=== PATIENT | female | born 1955 | race Caucasian/White ===

== ENCOUNTER 2022-04-29 08:11 | Inpatient (IN) ==
[2022-04-29] MEDS ORDERED: ONDANSETRON INJ 2 MG/ML 2 ML VIAL IV STA ×2 (08:33→09:58)
[2022-04-29] MEDS ORDERED: NITROGLYCERIN 2% OINTMENT 30GM TUBE EXT STA (08:33)
--- NOTE | 2022-04-29 08:37 | Emergency Department Note ---
Impression & Plan Precordial chest pain, Acute cholecystitis, Vomiting, Gall stone ED Provider Note NAME: RAF VIDALES AGE: 67 SEX: F : 1955 ARRIVES VIA: Walk-In INFORMANT: [Patient] ED PROVIDER(S): [Jovany Mcdonough MD] CHIEF COMPLAINT: Chest pain HISTORY OF PRESENT ILLNESS: The patient is a 67-year-old female who states that at 3 AM, 5-1/2 hours ago, she awoke with what she thought was indigestion. She had pressure in her chest and epigastrium. The pain was an 8/10. The patient states that at 5 AM, she was nauseated and vomited. The pain has persisted. The patient has no known coronary disease. She felt fine last night when she went to bed. She has not had recent exertional dyspnea or chest discomfort. She did try some Tums without any relief. PMHx/PSHx: See Below SOCIAL HISTORY: See Below. PHYSICAL EXAM: GENERAL: Patient is in no acute distress. HEENT: No acute trauma, normocephalic atraumatic, mucous membranes moist, no nasal congestion. NECK: No stridor, no adenopathy, no meningismus, trachea is midline. LUNGS: Clear to auscultation bilaterally, no wheeze, no rhonchi, breath sounds equal. Chest: Nontender chest wall. HEART: Without murmurs gallops or rubs, regular rate and rhythm. ABDOMEN: Soft, nontender, bowel sounds positive, no peritonitis. I cannot really elicit any discomfort with palpation of the upper abdomen. EXTREMITIES: No cyanosis or edema, full range of motion of all the joints without pain or difficulty, no signs for acute trauma. NEUROLOGIC: Oriented x 3, no acute motor or sensory deficits, no focal weakness. SKIN: No rash, no jaundice, no diaphoresis. DIFFERENTIAL DIAGNOSIS: Cardiac ischemia, aortic dissection, pulmonary embolism, pneumothorax, pericarditis, myocarditis, GERD, cholecystitis, pancreatitis, musculoskeletal pain, as well as other pathologies. EMERGENCY DEPARTMENT COURSE/PROCEDURES: Prior/Outside records reviewed: Recent outpatient family doctor's office visit. ECG per my interpretation: Indication was chest pain. The ECG shows a normal sinus rhythm with a rate of 70. There are some subtle ST depressions laterally with some T wave flattening laterally. There is no ST elevation, no PVCs. The QTc is 429. No previous ECGs available for comparison. Continuous Cardiac Monitoring per my interpretation: An order was placed for continuous cardiac monitoring. The monitor shows a rate of 69 with normal sinus rhythm. MEDICAL DECISION MAKING: There is no leukocytosis or concerning anemia. There is a normal platelet count. No coagulopathy. No renal failure or significant electrolyte abnormality. No concerning liver enzyme elevation. No evidence for pancreatitis. COVID test returned negative. Chest film does not show mediastinal widening, pneumonia or pneumothorax per my review. ECG shows a normal sinus rhythm, no obvious ischemia. Cardiac enzyme testing x1 is not consistent with acute cardiac injury. Gallbladder ultrasound shows a gallstone with early acute cholecystitis. The patient received IV Zosyn as antibiotic coverage. He was given IV Zofran, a second dose of IV Zofran was given. She received IV Tylenol for pain, she received IV Pepcid and a GI cocktail. She was given nitroglycerin paste. The patient presents with epigastric and chest discomfort. She had no response to the nitroglycerin, this was discontinued. Work-up does suggest acute cholecystitis as the cause for her discomfort. I spoke with general surgery. The patient was seen by general surgery here in the ED, she has been transported to the operating room. The patient is aware of her findings, case management has been involved. DISPOSITION: The patient's presentation and findings warrant a hospital stay. Past Med/Surg History Medical History Aplasia of uterus Surgical History Hx of tonsillectomy Family History Denies family history of Ovarian cancer Prostate cancer Diabetes Myocardial infarction Breast cancer Colorectal cancer Hypertension Social History Smoking Status: Never smoker Second Hand Exposure: No; Hx Alcohol Use: No Hx Substance Use: No Preferred Language: Nepalese Communication Ability: Effective Visual Impairment: No Limitations Hearing Ability: Normal Development Technician Required: No Beliefs That Will Affect Care: None marital status: Current Living Situation: Spouse 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 have: 2 Other Information That Helps Us Care for You: No Feels Safe at Home: Yes Safety Concerns: Feels Safe At This Time Childhood Exposure to Second-Hand Smoke: No caffeine: Yes (coffee and soda) during the past year weight has: remained stable Dental Care, Regularly: No Physical Activity Frequency: Daily Seatbelt Use: always Sunscreen Use: No Do you think of yourself as: straight/heterosexual Gender Identity: Female Assistive Devices: Contacts Allergies Allergies Allergy/AdvReac Type Severity Reaction Status Date / Time No Known Allergies Allergy Verified 04/08/22 12:43 Home Meds Home Medications Medication Instructions Recorded Confirmed ascorbate calcium (vitamin C) 500 500 mg PO DAILY 04/08/22 04/08/22 mg tablet cholecalciferol (vitamin D3) 250 250 mcg PO DAILY 04/08/22 04/08/22 mcg (10,000 unit) capsule zinc acetate 50 mg (zinc) capsule 50 mg PO DAILY 04/08/22 04/08/22 (Galzin) Results & Data (ED) Vital Signs Vital Signs - 24 hr 04/29/22 08:23 04/29/22 08:26 04/29/22 08:26 Temperature 36.7 C Temperature Source Oral Pulse Rate 70 69 69 Pulse Rate [Apical] Pulse Rate [Right Finger] Pulse Rhythm Regular Pulse Rhythm [Apical] Pulse Rhythm [Right Finger] Pulse Strength [Apical] Pulse Strength [Right Finger] Respiratory Rate 20 20 Respiratory Effort / Characteristics Non-Labored Spontaneous Respiratory Depth Normal Respiratory Pattern Regular Blood Pressure 191/98 H Blood Pressure [Left Arm] Blood Pressure [Right Arm] Blood Pressure Mean 129 Blood Pressure Mean [Left Arm] Blood Pressure Mean [Right Arm] Blood Pressure Position Sitting Blood Pressure Position [Left Arm] Blood Pressure Position [Right Arm] Pulse Oximetry 97 95 Oxygen Delivery Method Room Air Room Air Sepsis Recent Fever Within 48 Hours No Sepsis New/Unexplained Change in Mental Status No Sepsis Action Taken by Nursing No Action Required 04/29/22 09:31 04/29/22 11:14 04/29/22 12:31 Temperature Temperature Source Pulse Rate 78 Pulse Rate [Apical] 66 68 Pulse Rate [Right Finger] Pulse Rhythm Pulse Rhythm [Apical] Regular Regular Pulse Rhythm [Right Finger] Pulse Strength [Apical] Normal Normal Pulse Strength [Right Finger] Respiratory Rate 16 20 Respiratory Effort / Characteristics Non-Labored Non-Labored Spontaneous Respiratory Depth Normal Normal Respiratory Pattern Regular Blood Pressure Blood Pressure [Left Arm] Blood Pressure [Right Arm] 182/93 H 172/93 H Blood Pressure Mean Blood Pressure Mean [Left Arm] Blood Pressure Mean [Right Arm] 122 119 Blood Pressure Position Blood Pressure Position [Left Arm] Blood Pressure Position [Right Arm] Sitting Pulse Oximetry 97 98 Oxygen Delivery Method Room Air Room Air Sepsis Recent Fever Within 48 Hours Sepsis New/Unexplained Change in Mental Status Sepsis Action Taken by Nursing 04/29/22 12:32 04/29/22 12:55 04/29/22 13:02 Temperature 36.7 C Temperature Source Oral Pulse Rate Pulse Rate [Apical] 75 Pulse Rate [Right Finger] 74 Pulse Rhythm Pulse Rhythm [Apical] Regular Pulse Rhythm [Right Finger] Regular Pulse Strength [Apical] Normal Pulse Strength [Right Finger] Normal Respiratory Rate 20 20 Respiratory Effort / Characteristics Non-Labored Spontaneous Respiratory Depth Normal Respiratory Pattern Regular Blood Pressure Blood Pressure [Left Arm] 183/82 H Blood Pressure [Right Arm] 174/110 H 201/100 H Blood Pressure Mean Blood Pressure Mean [Left Arm] 115 Blood Pressure Mean [Right Arm] 131 133 Blood Pressure Position Blood Pressure Position [Left Arm] Lying Blood Pressure Position [Right Arm] Sitting Lying Pulse Oximetry 96 98 Oxygen Delivery Method Room Air Room Air Sepsis Recent Fever Within 48 Hours Sepsis New/Unexplained Change in Mental Status Sepsis Action Taken by Usp Medications Current Medication List: was personally reviewed by me Laboratory Data Attestation: I reviewed the patient's lab results. 04/29/22 08:48 04/29/22 08:48 Lab Results 04/29/22 04/29/22 04/29/22 Range/Units 08:48 08:48 08:48 WBC 7.22 (4.8-10.8) K/ul RBC 4.44 (4.20-5.40) M/uL Hgb 13.2 (12.0-16.0) g/dl Hct 39.1 (37.0-47.0) % MCV 88.1 (80.0-100.0) fL MCH 29.7 (25.0-34.0) pg MCHC 33.8 (32.0-36.0) g/dL RDW Std Deviation 39.2 (36.4-46.3) fL RDW Coeff of Dennys 12.1 (11.5-14.5) % Plt Count 235 (130-400) K/uL MPV 11.5 (9.4-12.4) fL Immature Gran % (Auto) 0.3 % Neut % (Auto) 79.1 % Lymph % (Auto) 12.0 % [place] % (Auto) 6.9 % Eos % (Auto) 0.7 % Baso % (Auto) 1.0 % Neut # (Auto) 5.71 (1.40-6.50) K/uL Lymph # (Auto) 0.87 L (1.2-3.4) K/uL [place] # (Auto) 0.50 (0.11-0.59) K/uL Eos # (Auto) 0.05 (0-0.50) K/uL Baso # (Auto) 0.07 (0-0.2) K/uL Immature Gran # (Auto) 0.02 (0.01-0.20) K/uL PT 10.8 (9.0-12.0) Seconds INR 1.0 (0.9-1.1) APTT 27.0 (21.0-31.0) Seconds PTT Ratio 1.0 Sodium 137 (136-145) mmol/L Potassium 4.3 (3.5-5.1) mmol/L Chloride 104 (98-107) mmol/L Carbon Dioxide 27 (21-32) mmol/L Anion Gap 6 (3-11) BUN 17 (6-23) mg/dl Creatinine 0.76 (0.6-1.2) mg/dl Est Cr Clr Drug Dosing 77.7 ml/min Est GFR ( Amer) 94.1 ml/min Est GFR (Non-Af Amer) 81.2 ml/min BUN/Creatinine Ratio 22.4 H (10-20) Glucose 139 H (70-99(Fasting)) mg/dl Calcium 9.7 (8.5-10.1) mg/dl Magnesium 2.0 (1.7-2.4) mg/dl Total Bilirubin 0.5 (0.2-1.0) mg/dl AST 21 (13-39) U/L ALT 19 (7-52) U/L Alkaline Phosphatase 60 (34-104) U/L Troponin I High Sens 5.1 (0-14) pg/ml Total Protein 7.4 (6.0-8.3) gm/dl Albumin 4.4 (3.4-5.0) gm/dl Globulin 3.0 (2.5-4.0) gm/dl Albumin/Globulin Ratio 1.5 (0.9-2) Lipase 19 (11-82) U/L SARS-CoV-2, RNA, NAAT (NEGATIVE) 04/29/22 04/29/22 Range/Units 09:34 11:20 WBC (4.8-10.8) K/ul RBC (4.20-5.40) M/uL Hgb (12.0-16.0) g/dl Hct (37.0-47.0) % MCV (80.0-100.0) fL MCH (25.0-34.0) pg MCHC (32.0-36.0) g/dL RDW Std Deviation (36.4-46.3) fL RDW Coeff of Dennys (11.5-14.5) % Plt Count (130-400) K/uL MPV (9.4-12.4) fL Immature Gran % (Auto) % Neut % (Auto) % Lymph % (Auto) % [place] % (Auto) % Eos % (Auto) % Baso % (Auto) % Neut # (Auto) (1.40-6.50) K/uL Lymph # (Auto) (1.2-3.4) K/uL [place] # (Auto) (0.11-0.59) K/uL Eos # (Auto) (0-0.50) K/uL Baso # (Auto) (0-0.2) K/uL Immature Gran # (Auto) (0.01-0.20) K/uL PT (9.0-12.0) Seconds INR (0.9-1.1) APTT (21.0-31.0) Seconds PTT Ratio Sodium (136-145) mmol/L Potassium (3.5-5.1) mmol/L Chloride (98-107) mmol/L Carbon Dioxide (21-32) mmol/L Anion Gap (3-11) BUN (6-23) mg/dl Creatinine (0.6-1.2) mg/dl Est Cr Clr Drug Dosing ml/min Est GFR ( Amer) ml/min Est GFR (Non-Af Amer) ml/min BUN/Creatinine Ratio (10-20) Glucose (70-99(Fasting)) mg/dl Calcium (8.5-10.1) mg/dl Magnesium (1.7-2.4) mg/dl Total Bilirubin (0.2-1.0) mg/dl AST (13-39) U/L ALT (7-52) U/L Alkaline Phosphatase (34-104) U/L Troponin I High Sens 5.0 (0-14) pg/ml Total Protein (6.0-8.3) gm/dl Albumin (3.4-5.0) gm/dl Globulin (2.5-4.0) gm/dl Albumin/Globulin Ratio (0.9-2) Lipase (11-82) U/L SARS-CoV-2, RNA, NAAT NEGATIVE (NEGATIVE) Administered Medications Sodium Chloride (Nss 1000ml) 1,000 mls @ 50 mls/hr IV .Q20H ANGUS Stop: 05/29/22 15:59 Last Admin: 04/29/22 16:01 Dose: 50 mls/hr Documented By: JUAN PABLO Discontinued Medications Al Hydrox/Mg Hydrox/Simethicone (Gi Cocktail Ed Use) 1 dose PO ONE ONE Stop: 04/29/22 09:59 Last Admin: 04/29/22 10:26 Dose: 1 dose Documented By: AMINTA Bupivacaine HCl (Bupivacaine 0.5 % 5 Mg/1 Ml Mpf 30ml Vial) Confirm Administered Dose 30 ml .ROUTE .STK-MED ONE Stop: 04/29/22 13:14 Last Admin: 04/29/22 14:03 Dose: 10 ml Documented By: MOLLY Famotidine (Pepcid 20mg Iv Push) 20 mg in 5 mls @ 2.5 mls/min IV NOW STA Stop: 04/29/22 09:59 Last Admin: 04/29/22 10:13 Dose: 2.5 mls/min Documented By: NRJonathan Piperacillin Sod/Tazobactam (Sod 4.5 gm/ Dextrose) 120 mls @ 200 mls/hr IV NOW ONE; Protocol Stop: 04/29/22 12:22 Last Admin: 04/29/22 12:21 Dose: Not Given Documented By: MNE Acetaminophen (Ofirmev) 1,000 mg in 100 mls @ 400 mls/hr IV NOW ONE Stop: 04/29/22 14:20 Last Infusion: 04/29/22 15:33 Dose: 0 mls/hr Documented By: JUAN PABLO Admin: 04/29/22 14:23 Dose: 400 mls/hr Documented By: NHI Lactated Ringer's (Lr) 1,000 mls @ 50 mls/hr IV .Q20H ANGUS Stop: 05/29/22 15:31 Last Admin: 04/29/22 16:03 Dose: Not Given Documented By: JUAN PABLO Nitroglycerin (Nitroglycerin 2% Ointment 30gm Tube) 1 inch EXT NOW STA Stop: 04/29/22 08:34 Last Admin: 04/29/22 08:48 Dose: 1 inch Documented By: AMINTA Ondansetron HCl (Ondansetron Inj 2 Mg/Ml 2 Ml Vial) 4 mg IV NOW STA Stop: 04/29/22 08:34 Last Admin: 04/29/22 08:43 Dose: 4 mg Documented By: AMINTA Ondansetron HCl (Ondansetron Inj 2 Mg/Ml 2 Ml Vial) 4 mg IV NOW STA Stop: 04/29/22 09:59 Last Admin: 04/29/22 10:11 Dose: 4 mg Documented By: AMINTA Piperacillin Sod/Tazobactam Sod (Piperacillin/Tazobactam 4.5 Gm/120ml D5w) Confirm Administered Dose 4.5 gm IV .STK-MED ONE Stop: 04/29/22 11:54 Last Admin: 04/29/22 12:09 Dose: 4.5 gm Documented By: AMINTA Imaging Data Radiologist's Impression: Chest X-Ray 04/29/22 08:24 XR chest 1V portable CLINICAL HISTORY: Chest pain, nonspecific COMPARISON STUDY: No previous studies for comparison. FINDINGS: Lung volumes are normal. Lungs are clear. There is no pneumothorax or pleural effusion. There is mild cardiomegaly. Mediastinal contours are normal. There is no evidence for pulmonary edema. IMPRESSION: No acute cardiopulmonary findings. Mild cardiomegaly. ACT 112: Negative or not required by law. Electronically signed by: Jonatan Fountain M.D. 04/29/2022 8:45 AM Gallbladder Ultrasound 04/29/22 09:58 ULTRASOUND RIGHT UPPER QUADRANT ABDOMEN CLINICAL HISTORY: Epigastric abdominal pain. COMPARISON STUDY: No priors. TECHNIQUE: Real-time, grayscale, and color flow sonography of the right upper quadrant of the abdomen was performed. Images are reviewed in the transverse and longitudinal planes. FINDINGS: Liver: The liver is normal in size and echotexture. There is no intrahepatic biliary ductal dilatation. The main portal vein is patent. Gallbladder: The gallbladder is distended, and there is a shadowing gallstone in the region of the gallbladder neck. The gallbladder wall is mildly thickened, measuring up to 4 mm. There may be faint edema within the gallbladder wall. No pericholecystic fluid is seen. A sonographic Stubbs's sign could not be assessed as the patient received analgesia. A small focus of adenomyomatosis is suggested. The common bile duct measures up to 0.5 cm in diameter. Pancreas: Visualized portions of the pancreatic head and body are normal in appearance. Right kidney: Survey images of the right kidney demonstrate normal size and echotexture. There is no hydronephrosis. Ascites: None. IMPRESSION: 1. Cholelithiasis with evidence of acute cholecystitis. Surgical consultation is advised. 2. There is no intra or extrahepatic biliary ductal dilatation. ACT 112: Negative or not required by law. Electronically signed by: Jovany Gill M.D. 04/29/2022 11:42 AM Discharge Plan Visit Data Chief Complaint: Cardiac Assessment Stated Complaint: CARDIAC PROBLEMS ED Provider: Jovany Mcdonough Discharge Problem: Precordial chest pain, Acute cholecystitis, Vomiting, Gall stone Patient Disposition: Admitted As Inpatient Condition: Fair Discharge Instructions Interventions: ED Discharge Assessment Last Done: 04/29/22 12:52
--- NOTE | 2022-04-29 08:47 | XRay Report ---
XR chest 1V portable CLINICAL HISTORY: Chest pain, nonspecific COMPARISON STUDY: No previous studies for comparison. FINDINGS: Lung volumes are normal. Lungs are clear. There is no pneumothorax or pleural effusion. The re is mild cardiomegaly. Mediastinal contours are normal. There is no evidence for pulmonary edema. IMPRESSION: No acute cardiopulmonary findings. Mild cardiomegaly. ACT 112: Negative or not required by law. Electronically signed by: Jonatan Fountain M.D. 04/29/2022 8:45 AM
[2022-04-29 09:17] LABS: Basophils # (auto) 0.07 K/uL (0-0.2); Eosinophils # (auto) 0.05 K/uL (0-0.50); Eosinophils % (auto) 0.7 %; Hematocrit (blood only) 39.1 % (37.0-47.0); Hemoglobin 13.2 g/dl (12.0-16.0); Immature Granulocytes # (auto) 0.02 K/uL (0.01-0.20); Immature Granulocytes % (auto) 0.3 %; Lymphocytes # (auto) 0.87 K/uL (1.2-3.4); Mean Corpuscular Hemoglobin 29.7 pg (25.0-34.0); Mean Corpuscular Hgb Conc 33.8 g/dL (32.0-36.0); Mean Corpuscular Volume 88.1 fL (80.0-100.0); Mean Platelet Volume 11.5 fL (9.4-12.4); Monocytes % (auto) 6.9 %; Neutrophils # (auto) 5.71 K/uL (1.40-6.50); Neutrophils % (auto) 79.1 %; Platelet Count 235 K/uL (130-400); RDW Coefficient of Variation 12.1 % (11.5-14.5); RDW Standard Deviation 39.2 fL (36.4-46.3); Red Blood Count 4.44 M/uL (4.20-5.40); White Blood Count 7.22 K/ul (4.8-10.8)
[2022-04-29 09:32] LABS: Albumin Globulin Ratio 1.5 (0.9-2); Albumin Level 4.4 gm/dl (3.4-5.0); BUN Creatinine Ratio 22.4 (10-20); Bilirubin,Total 0.5 mg/dl (0.2-1.0); Calcium 9.7 mg/dl (8.5-10.1); Creatinine Clr Calc Pharmacy 77.7 ml/min; Est GFR (African American) 94.1 ml/min; Est GFR (Non-African American) 81.2 ml/min; Potassium 4.3 mmol/L (3.5-5.1); Total Protein 7.4 gm/dl (6.0-8.3)
[2022-04-29 09:39] LABS: Troponin I High Sensitivity 5.1 pg/ml (0-14)
[2022-04-29 09:43] LABS: Prothrombin Time 10.8 Seconds (9.0-12.0)
[2022-04-29] MEDS ORDERED: GI COCKTAIL ED USE PO ONE (09:58)
[2022-04-29] MEDS ORDERED: FAMOTIDINE 20MG IV PUSH 20 MG/5 ML SYR IV STA (09:58)
--- NOTE | 2022-04-29 11:25 | Electrocardiogram Report ---
Test Reason : Blood Pressure : / mmHG Vent. Rate : 070 BPM Atrial Rate : 070 BPM P-R Int : 154 ms QRS Dur : 088 ms QT Int : 398 ms P-R-T Axes : 043 023 024 degrees QTc Int : 429 ms Poor data quality, interpretation may be adversely affected Normal sinus rhythm Nonspecific T wave abnormality Abnormal ECG No previous ECGs available Confirmed by Deepak Lyons ([id number]) on 04/29/2022 11:25:02 AM Referred By: REFERRED SELF Confirmed By:Gurpreet Lyons
--- NOTE | 2022-04-29 11:44 | Ultrasound Report ---
ULTRASOUND RIGHT UPPER QUADRANT ABDOMEN CLINICAL HISTORY: Epigastric abdominal pain. COMPARISON STUDY: No priors. TECHNIQUE: Real-time, grayscale, and color flow sonography of the right upper quadrant of the abdomen was performed. Images are reviewed in the transverse and longitudinal planes. FINDINGS: Liver: The liver is normal in size and echotexture. There is no intrahepatic biliary ductal dilatatio n. The main portal vein is patent. Gallbladder: The gallbladder is distended, and there is a shadowing gallstone in the region of the ga llbladder neck. The gallbladder wall is mildly thickened, measuring up to 4 mm. There may be faint ed marco within the gallbladder wall. No pericholecystic fluid is seen. A sonographic Stubbs's sign could not be assessed as the patient received analgesia. A small focus of adenomyomatosis is suggested. The common bile duct measures up to 0.5 cm in diameter. Pancreas: Visualized portions of the pancreatic head and body are normal in appearance. Right kidney: Survey images of the right kidney demonstrate normal size and echotexture. There is no hydronephrosis. Ascites: None. IMPRESSION: 1. Cholelithiasis with evidence of acute cholecystitis. Surgical consultation is advised. 2. There is no intra or extrahepatic biliary ductal dilatation. ACT 112: Negative or not required by law. Electronically signed by: Jovany Gill M.D. 04/29/2022 11:42 AM
[2022-04-29] MEDS ORDERED: PIPERACILLIN/TAZOBACTAM 4.5 GM in DEXTROSE 5% 100 ML IV ONE (11:47)
[2022-04-29] MEDS ORDERED: CALCIUM GLUCONATE 1,000 MG/60 ML BAG IV STA (11:47)
[2022-04-29] MEDS ORDERED: PIPERACILLIN/TAZOBACTAM 4.5 GM/120ML D5W IV ONE (11:53)
--- NOTE | 2022-04-29 12:39 | History & Physical Report ---
Date of Service April 29, 2022 Assessment & Plan (1) Acute cholecystitis: Plan: This is a 67yF with no significant PMH who presents to the [facility] ED on 04/29/22 with complaints of epigastric pain that started this morning. This was associated with nausea/vomiting. In the ER a RUQ US was obtained that revealed cholelithiasis in a distended gallbladder, with a stone in the gallbladder neck with concerns for acute cholecystitis. WBC 7.2. LFTs okay. On exam patient's abdomen is soft, no discomfort currently elicited. Based on history and findings this is consistent with acute gloria. Would recommend surgical intervention for removal. She is agreeable with the plan. Keep NPO with IVF and started on pre op ABX. Dr. Loo has obtained consent. History of Present Illness Primary Care Provider: YESENIA Zuniga This is a 67yF with no significant PMH who presents to the [facility] ED on 04/29/22 with complaints of epigastric pain. Patient started experiencing pain at 3AM this morning. She thought it was indigestion but TUMS did not work. She developed nausea with episodes of vomiting. Rated the pain an 8/10. Due to her symptoms she came into the ER for further evaluation. A RUQ US was obtained that showed cholelithiasis in a distended gallbladder, with a stone in the gallbladder neck with concerns for acute cholecystitis. She last ate some peanuts and chips around 9-10pm last night. No issues like this in the past. No prior issues with eating fatty/greasy foods. History of uterine ablation. She is feeling better since receiving medication. Allergies Allergy/AdvReac Type Severity Reaction Status Date / Time No Known Allergies Allergy Verified 04/08/22 12:43 Home Medications Medication Instructions Recorded Confirmed Type ascorbate calcium (vitamin C) 500 500 mg PO DAILY 04/08/22 04/08/22 History mg tablet cholecalciferol (vitamin D3) 250 250 mcg PO DAILY 04/08/22 04/08/22 History mcg (10,000 unit) capsule zinc acetate 50 mg (zinc) capsule 50 mg PO DAILY 04/08/22 04/08/22 History (Galzin) Past Med/Surg History Medical History Aplasia of uterus Surgical History Hx of tonsillectomy Family History Denies family history of Ovarian cancer Prostate cancer Diabetes Myocardial infarction Breast cancer Colorectal cancer Hypertension Social History Smoking Status: Never smoker Second Hand Exposure: No; Hx Alcohol Use: No Hx Substance Use: No Preferred Language: Yi Communication Ability: Effective Visual Impairment: No Limitations Hearing Ability: Normal Custodial Supervisor Required: No Beliefs That Will Affect Care: None marital status: Current Living Situation: Spouse 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 have: 2 Feels Safe at Home: Yes Childhood Exposure to Second-Hand Smoke: No caffeine: Yes (coffee and soda) during the past year weight has: remained stable Dental Care, Regularly: No Physical Activity Frequency: Daily Seatbelt Use: always Sunscreen Use: No Do you think of yourself as: straight/heterosexual Gender Identity: Female Assistive Devices: None Review of Systems Constitutional: no fever and no chills Respiratory: no dyspnea Cardiovascular: no chest pain Gastrointestinal: + abdominal pain (epigastric/RUQ pain), + nausea and + vomiting; no change in bowel habits Physical Exam Physical Exam: awake/alert no distress Constitutional: well developed and well nourished; no acute distress Respiratory: normal respiratory effort Gastrointestinal (Abdomen): Inspection/Auscultation: abdomen not distended Percussion/Palpation: abdomen soft; abdomen nontender (no ttp appreciated currently) Results & Data Results & Data ([facility]) Vital Signs (Past 12 Hours) Vital Signs Temp Pulse Pulse Resp BP BP Pulse Ox 04/29/22 12:31 78 04/29/22 11:14 68 20 172/93 H 98 04/29/22 09:31 66 16 182/93 H 97 04/29/22 08:26 69 04/29/22 08:26 69 20 95 04/29/22 08:23 36.7 C 70 20 191/98 H 97 O2 Del Method 04/29/22 12:31 04/29/22 11:14 Room Air 04/29/22 09:31 Room Air 04/29/22 08:26 04/29/22 08:26 Room Air 04/29/22 08:23 Room Air Diagnostic Findings ULTRASOUND RIGHT UPPER QUADRANT ABDOMEN CLINICAL HISTORY: Epigastric abdominal pain. COMPARISON STUDY: No priors. TECHNIQUE: Real-time, grayscale, and color flow sonography of the right upper quadrant of the abdomen was performed. Images are reviewed in the transverse and longitudinal planes. FINDINGS: Liver: The liver is normal in size and echotexture. There is no intrahepatic biliary ductal dilatation. The main portal vein is patent. Gallbladder: The gallbladder is distended, and there is a shadowing gallstone in the region of the gallbladder neck. The gallbladder wall is mildly thickened, measuring up to 4 mm. There may be faint edema within the gallbladder wall. No pericholecystic fluid is seen. A sonographic Stubbs's sign could not be assessed as the patient received analgesia. A small focus of adenomyomatosis is suggested. The common bile duct measures up to 0.5 cm in diameter. Pancreas: Visualized portions of the pancreatic head and body are normal in appearance. Right kidney: Survey images of the right kidney demonstrate normal size and echotexture. There is no hydronephrosis. Ascites: None. IMPRESSION: 1. Cholelithiasis with evidence of acute cholecystitis. Surgical consultation is advised. 2. There is no intra or extrahepatic biliary ductal dilatation ACT 112: Negative or not required by law. Electronically signed by: Jovany Gill M.D. 04/29/2022 11:42 AM Supervising Physician Co-Signing Physician Notes Dr. Fagan seen and examined in the emergency room Her symptoms and findings are consistent with acute cholecystitis Plan is to proceed with laparoscopic cholecystectomy-she is in agreement with the plan PG Care Time/CCT Total # of Minutes Spent Total Time Spent with Patient: Total time spent is greater than 50% in coordination of care (as documented) at patient's floor/unit and/or counseling patient: Coding Level of Care Code 85943 INT INP/OBS CARE 1/40MIN Diagnoses Acute cholecystitis K81.0
[2022-04-29] MEDS ORDERED: fentaNYL citrate 100 MCG/2 ML VIAL ONE ×2 (12:42)
[2022-04-29] MEDS ORDERED: GLYCOPYRROLATE 0.2 MG/ML VIAL ONE (12:42)
[2022-04-29] MEDS ORDERED: ROCURONIUM BROMIDE 10 MG/ML 5 ML VIAL IV ONE (12:42)
[2022-04-29] MEDS ORDERED: DEXAMETHASONE SOD INJ 4 MG/ML VIAL ONE (12:42)
[2022-04-29] MEDS ORDERED: PROPOFOL IV EMULSION 10 MG/ML 20 ML VIAL IV ONE (12:42)
[2022-04-29] MEDS ORDERED: ONDANSETRON INJ 2 MG/ML 2 ML VIAL ONE (12:42)
[2022-04-29] MEDS ORDERED: ePHEDrine sulfate 50 MG/ML AMP IV PRN (13:11)
[2022-04-29] MEDS ORDERED: ONDANSETRON INJ 2 MG/ML 2 ML VIAL IV PRN ×2 (13:11→15:32)
[2022-04-29] MEDS ORDERED: fentaNYL citrate 100 MCG/2 ML VIAL IV PRN (13:11)
[2022-04-29] MEDS ORDERED: ATROPINE SULFATE 0.1 MG/ML 10ML SYR IV PRN (13:11)
--- NOTE | 2022-04-29 13:11 | Anesthesiology Consultation ---
Date of Service April 29, 2022 Assessment & Plan (1) Encounter for pre-operative examination: Chart Review Chart Review: Acceptable Risk for Surgery and Patient NOT seen in Pre Admission Testing Consults Requested none History Surgery Operation Date: 04/29/22 18:30 Proposed Procedures p Laparoscopic Cholecystectomy - Binu Loo MD, FACS Height/Weight Height: 5 ft 2 in Weight: 96.2 kg Allergies Allergy/AdvReac Type Severity Reaction Status Date / Time No Known Allergies Allergy Verified 04/08/22 12:43 Medications Home Medications Medication Instructions Recorded Confirmed Last Taken ascorbate calcium (vitamin C) 500 500 mg PO DAILY 04/08/22 04/08/22 Unknown mg tablet cholecalciferol (vitamin D3) 250 250 mcg PO DAILY 04/08/22 04/08/22 Unknown mcg (10,000 unit) capsule zinc acetate 50 mg (zinc) capsule 50 mg PO DAILY 04/08/22 04/08/22 Unknown (Galzin) NPO Date Last Intake of Fluids: 04/28/22 Time Last Intake of Fluids: 22:00 Date Last Intake of Solids: 04/28/22 Time Last Intake of Solids: 22:00 Past Medical History Medical History Aplasia of uterus Past Family History Family History Denies family history of Ovarian cancer Prostate cancer Diabetes Myocardial infarction Breast cancer Colorectal cancer Hypertension Past Surgical History Surgical History Hx of tonsillectomy Social History Smoking Status: Never smoker Hx Alcohol Use: No Hx Substance Use: No Physical Exam Vital Signs Last Vital Signs Temp 98.1 F 04/29/22 12:55 Pulse 74 04/29/22 12:55 Resp 20 04/29/22 12:55 BP 183/82 H 04/29/22 13:02 Pulse Ox 98 04/29/22 12:55 O2 Del Method Room Air 04/29/22 12:55 Testing Laboratory Results 04/29/22 08:48 04/29/22 08:48 PT 10.8 Seconds (9.0-12.0) 04/29/22 08:48 INR 1.0 (0.9-1.1) 02/20/23 08:48 APTT 27.0 Seconds (21.0-31.0) 04/29/22 08:48 Electrocardiogram Date: 04/29/22 Findings: + NSR @
[2022-04-29] MEDS ORDERED: BUPIVACAINE 0.5 % 5 MG/1 ML MPF 30ML VIAL ONE (13:13)
[2022-04-29] MEDS ORDERED: SUGAMMADEX SODIUM 200 MG/2 ML VIAL IV ONE (13:39)
[2022-04-29] MEDS ORDERED: LABETALOL HCL IV 5 MG/ML 20ML IV ONE (13:54)
[2022-04-29] MEDS ORDERED: oxyCODONE HCL IR 5 MG TAB (IMMEDIATE RELEASE) PO PRN ×2 (14:06→15:32)
[2022-04-29] MEDS ORDERED: ACETAMINOPHEN 1,000 MG/100 ML VIAL IV ONE (14:06)
--- NOTE | 2022-04-29 14:06 | Post Operative Brief Note ---
PG Immediate Post Op with CF Date of Surgery April 29, 2022 Pre & Post Diagnosis Operation Date: 04/29/22 18:30 Pre-Op Diagnosis: Acute cholecystitis Post-Op Diagnosis: Acute cholecystitis I identified the patient and participated in the time-out.: Yes Procedure Operation Date: 04/29/22 18:30 Actual Procedures p Laparoscopic Cholecystectomy(Not Applicable) - Binu Loo MD, FACS Surgeon Binu Loo MD, FACS Museum Director Cam Abebe Estimated Blood Loss 10 Findings Consistent with Post-Op Diagnosis Severe edema in the gallbladder consistent with acute cholecystitis Specimens Specimen Description: A. Gallbladder
--- NOTE | 2022-04-29 14:50 | Operative Report (OR) ---
DATE OF OPERATION: 04/29/2022. NAME OF OPERATION: Laparoscopic cholecystectomy. PREOPERATIVE DIAGNOSIS: Acute cholecystitis. POSTOPERATIVE DIAGNOSIS: Acute cholecystitis. STAFF SURGEON: Binu Loo MD. TUBE FILLER: Maria E Abebe PA-C. ANESTHESIA: General. DESCRIPTION OF PROCEDURE: The patient was brought in the operating room and placed on the operating room table in supine position. She was brought from the ER. Her abdomen was prepped and draped in t he usual fashion. Pneumatic stockings and orogastric tube were placed. 0.5% plain Marcaine was used to anesthetize all incisions. Incision was made above the umbilicus, carrying dissection down throu gh significant adipose tissue to the fascia, placing a Veress needle, producing pneumoperitoneum. An 11 mm port placed at this level and under visualization, three 5 mm ports were placed, one cephalad and two laterally. My surgeon's assistant helped with prepping, draping, removal of the gallbladder and closur e of the wounds. At this point, the gallbladder was grasped and retracted. It was severely edematou s. It was aspirated of bile. Dissection carried out to the lynette hepatis showing severe edema. Cys tic duct and cystic artery were identified and clipped and transected and the gallbladder dissected a way from the liver bed in the usual fashion with severe edema in the posterior wall. After appropria te hemostasis and irrigation, the gallbladder was placed into an Endobag and then the Endobag was rem guerita through the umbilical site. I did have to enlarge the fascial defect slightly because of the st one and size of the gallbladder. Fascia at the umbilicus closed using interrupted 0 Vicryl suture. T he skin was reapproximated using subcuticular 4-0 Monocryl with Dermabond. The patient was transferr ed to recovery room in stable condition. Job ID: [id number]
--- NOTE | 2022-04-29 14:51 | Anesthesiology Progress Note ---
Date of Service April 29, 2022 Anesthesia Post Procedure Vital Signs Vital Signs: Temp Pulse Pulse Pulse Resp BP BP 04/29/22 14:40 68 14 137/73 04/29/22 14:30 72 17 137/80 04/29/22 14:20 97.0 F L 67 11 L 158/85 H 04/29/22 13:02 183/82 H 04/29/22 12:55 98.1 F 74 20 04/29/22 12:32 75 20 04/29/22 12:31 78 04/29/22 11:14 68 20 04/29/22 09:31 66 16 04/29/22 08:26 69 04/29/22 08:26 69 20 04/29/22 08:23 98.1 F 70 20 191/98 H BP Pulse Ox O2 Del Method O2 Flow Rate 04/29/22 14:40 92 Room Air 04/29/22 14:30 100 Oxymask 5 04/29/22 14:20 98 Oxymask 5 04/29/22 13:02 04/29/22 12:55 201/100 H 98 Room Air 04/29/22 12:32 174/110 H 96 Room Air 04/29/22 12:31 04/29/22 11:14 172/93 H 98 Room Air 04/29/22 09:31 182/93 H 97 Room Air 04/29/22 08:26 04/29/22 08:26 95 Room Air 04/29/22 08:23 97 Room Air Pain Intensity Right Abdomen: Pain Intensity: 4 Transfer of Care Handoff Completed per policy Notes Mental Status: alert / awake / arousable and participated in evaluation Patient Amnestic to Procedure: Yes Nausea / Vomiting: adequately controlled Pain: adequately controlled Airway Patency, RR, SpO2: stable & adequate BP & HR: stable & adequate Hydration State: stable & adequate Anesthetic Complications: no major complications apparent and Pt Satisfied with anesthetic care
[2022-04-29] MEDS ORDERED: HYDROmorphone INJ 0.5 MG/0.5 ML SYR IV PRN (15:32)
[2022-04-29] MEDS ORDERED: LACTATED RINGER'S 1,000 ML IV SCH (15:32)
[2022-04-29] MEDS ORDERED: IBUPROFEN 600 MG TAB PO PRN (15:32)
[2022-04-29] MEDS ORDERED: SODIUM CHLORIDE 0.9% 1000ML 1,000 ML IV SCH (16:00)
[2022-04-29] MEDS: PIPERACILLIN/TAZOBACTAM 3.375 GM in DEXTROSE 5% 100 ML IV SCH (16:51)
[2022-04-30] MEDS ORDERED: MELATONIN 3 MG TAB PO PRN (00:17)
[2022-04-30] MEDS: PIPERACILLIN/TAZOBACTAM 3.375 GM in DEXTROSE 5% 100 ML IV SCH ×2 (00:26→08:55)
[2022-04-30] MEDS: ACETAMINOPHEN 325 MG TAB PO PRN ×2 (00:39→08:13)
--- NOTE | 2022-04-30 06:37 | Surgery Progress Note ---
Date of Service April 30, 2022 Assessment & Plan (1) S/P laparoscopic cholecystectomy: Plan: Patient doing very well status post laparoscopic cholecystectomy I think she is ready for discharge home She does not want any pain medication She does not require IV antibiotics or oral antibiotics on discharge We will see in the office in 1 to 2 weeks Admission and Anticipated Discharge Date Admission Date: April 29, 2022 Results & Data ([facility]) Vital Signs (Past 12 Hours) Vital Signs Temp Pulse Resp BP BP Pulse Ox O2 Del Method 04/30/22 03:11 36.8 C 71 18 119/72 96 Room Air 04/29/22 22:54 36.8 C 78 18 132/77 93 Room Air 04/29/22 19:04 36.6 C 82 18 163/91 H 95 Room Air PG Care Time/CCT Total # of Minutes Spent Total Time Spent with Patient: Total time spent is greater than 50% in coordination of care (as documented) at patient's floor/unit and/or counseling patient: Coding Level of Care Code None Diagnoses S/P laparoscopic cholecystectomy Z90.49
[2022-04-30] MEDS ORDERED: HEPARIN SOD 5,000 UNIT/0.5 ML VIAL SQ SCH (09:00)
--- NOTE | 2022-05-01 12:00 | Discharge Summary ---
Date of Service May 01, 2022 Admission HPI Per Admitting Provider This is a 67yF with no significant PMH who presents to the [facility] ED on 04/29/22 with complaints of epigastric pain. Patient started experiencing pain at 3AM this morning. She thought it was indigestion but TUMS did not work. She developed nausea with episodes of vomiting. Rated the pain an 8/10. Due to her symptoms she came into the ER for further evaluation. A RUQ US was obtained that showed cholelithiasis in a distended gallbladder, with a stone in the gallbladder neck with concerns for acute cholecystitis. She last ate some peanuts and chips around 9-10pm last night. No issues like this in the past. No prior issues with eating fatty/greasy foods. History of uterine ablation. She is feeling better since receiving medication. Admission Exam Per Admitting Provider Patient is awake and alert Vital signs are stable Her sclera are anicteric Neck is supple No respiratory distress Heart rate normal Abdomen is soft but shows tenderness in the right upper quadrant Extremities are warm and dry Principal Diagnosis Acute cholecystitis Discharge Exam Patient awake and alert Minimal pain Abdomen soft Discharge Data Allergies Allergy/AdvReac Type Severity Reaction Status Date / Time No Known Allergies Allergy Verified 04/08/22 12:43 Consultations 04/29/22 12:14 Consult General Surgery Stat Procedures Performed Operation Date: 04/29/22 18:30 Actual Procedures p Laparoscopic Cholecystectomy(Not Applicable) - Binu Loo MD, FACS Ordered Studies 04/29/22 09:58 US gallbladder Stat Hospital Course (1) Acute cholecystitis: Plan Patient brought in the hospital through the emergency room She was taken to the operating room on 04/29/2022 where she underwent laparoscopic cholecystectomy She tolerated procedure well and did well overnight She was felt stable for discharge on 04/30/2022 To be followed in the surgical clinic within 1 to 2 weeks Total Time Total Time Spent Total Time Spent (In Minutes): 20 minutes Discharge Plan Discharge Items Patient Disposition: Home - Self-Care Reason For Visit: ACUTE CHOLECYSTITIS Discharge Diagnosis: laparoscopic cholecystectomy acute cholecystitis Condition on Discharge: Fair Activity: Per Instructions section Activity Comment: light activity for 4 weeks Lifting: No more than 10 pounds Bathing Comment: may shower; no soaking in tubs/pools Sexual Activity: When tolerated Exercise/Sports: Wait until after follow-up appointment Exercise Comment: wait 4 weeks Driving/Machine Use: no driving while taking narcotics for pain Non-emergency contact: Primary Care Provider and Surgeon Call non-emergency contact if: you have any medication questions, your symptoms worsen, your pain is not controlled, your pain is concerning for you, you have a fever, your temperature is above 101.5, your wound has increased redness, your wound has increased drainage and your wound pain has increased Follow-up/Referrals: Kelin Davila CRNP [Primary Care Provider] - 05/07/22 10:30 am Binu Loo MD, FACS [Physician] - 05/07/22 9:00 am Diet: Regular Addtl Attending Provider Instructions: SPECIAL CARE INSTRUCTIONS: * Cover incisions and change daily for comfort/drainage. May leave uncovered with Dermabond * May use ibuprofen for pain as tolerated. * Expect some swelling and bruising. Call your doctor if: * Temperature above 101 degrees * Pain not relieved by pain medicine ordered * There is increased drainage or redness from any incision * You have any unanswered questions or concerns [phone]. FOLLOW UP VISIT: If not already scheduled, please call the office for a follow-up visit. For 2 weeksno sutures to remove OFFICE PHONE NUMBER: Dr. Loo Office Pending Studies at Discharge: Yes Studies:: surgical pathology Stand-Alone Forms: [facility] [employer], Smoking Cessation Medications and DC Order Prescriptions: Continued ascorbate calcium (vitamin C) 500 mg tablet 500 mg PO DAILY cholecalciferol (vitamin D3) 250 mcg (10,000 unit) capsule 250 mcg PO DAILY Galzin 50 mg (zinc) capsule 50 mg PO DAILY Discharge Orders: Discharge Order (Routine); Ordered 04/30/22 Ordered By: Binu Restrepo/Other Patient Handouts: Having Laparoscopic Cholecystectomy Admission Data Admit Date/Time: 04/29/22 14:11 Attending Provider: Binu Loo Admit Provider: Binu Loo Primary Care Provider: Kelin Davila Other Providers: Binu Loo Other Interventions: Discharge Summary Assessment (RN) Last Done: 04/30/22 09:05 Coding Level of Care Code HOSP INP/OBS DISCH 30 MIN/LESS Diagnoses Acute cholecystitis K81.0
== END 2022-04-30 10:24 | disposition home or self-care (01) | DRG 419 ==
LOC: ED 08:11 → OR 12:48 → 3W 14:11
DX: K80.00 Calculus of gallbladder with acute cholecystitis without obstruction